=== PATIENT | male | born 2000 | race Caucasian/White ===

== ENCOUNTER → 2023-09-13 | Emergency (ER) | payer MEDICAID ==
[~2023-09-13] VITALS: Ht 182.9 cm; Wt 99.8 kg
[~2023-09-13] MED LIST: ACETAMINOPHEN 500 MG TABLET PO ONE; IBUPROFEN 400 MG TABLET PO ONE; LIDOCAINE/EPI MPF 1%1:200000 30 ML VIAL INJ ONE
[2023-09-13 13:04] VITALS: BP_SYST 130; PULSE 75; RESP 17; TEMP 97; O2SAT 98
== END | disposition home or self-care (01) ==
LOC: SED 12:19
DX: S91.312A Laceration without foreign body, left foot, initial encounter (principal); Z79.899 Other long term (current) drug therapy; W25.XXXA Contact with sharp glass, initial encounter; Y93.89 Activity, other specified; Y92.89 Other specified places as the place of occurrence of the external cause; Y99.8 Other external cause status
CPT/HCPCS: 99283